=== PATIENT | female | born 1980 | race Caucasian/White ===

== ENCOUNTER 2023-05-22 20:25 | Emergency (ER) | payer OTHER ==
[~2023-05-22] VITALS: Ht 149.9 cm; Wt 69.4 kg
[2023-05-22 20:42] VITALS: BP 127/82; PULSE 82; RESP 18; TEMP 97.4; O2SAT 98
[2023-05-22] MEDS ORDERED: TORADOL IV STA (21:06)
[2023-05-22] MEDS ORDERED: TORADOL ONE (21:15)
[2023-05-22] MEDS ORDERED: NS 1000ML 1,000 ML ONE (21:15)
[2023-05-22 21:24] LABS: APPEARANCE,URINE CLEAR; BILIRUBIN,URINE NEGATIVE (NEGATIVE); LEUKOCYTE ESTERASE ,URINE NEGATIVE (NEGATIVE); NITRATE,URINE NEGATIVE (NEGATIVE); UA COLOR YELLOW; UROBILINOGEN,URINE 0.2 E.U./dL (0.2)
[2023-05-22] MEDS ORDERED: NS 1000ML 1,000 ML IV ONE (21:30)
[2023-05-22 21:31] LABS: BASOPHIL # 0.1 10^3/uL (0.0-0.1); BASOPHIL % 0.9 % (0.0-0.2); EOSINOPHIL # 0.3 10^3/uL (0.0-0.2); EOSINOPHIL % 2.5 % (0.0-5.0); HEMATOCRIT(ML) 45.9 % (36.0-46.0); LYMPHOCYTES # 4.36 10^3/uL1 (1.0-4.8); LYMPHOCYTES % 35.4 % (24.0-44.0); MEAN CORP HGB 27.7 pg (26-34); MEAN CORP HGB CONCENTRATION 32.7 g/dL (33-36.5); MEAN CORP VOLUME 84.7 fL (78-100); MONOCYTES % 7.9 % (5.0-12.0); NEUTROPHIL # 6.5 10^3/uL (1.8-7.7); NEUTROPHILS % 53.1 % (41.0-85.0); PLATELET COUNT 405 10^3/uL (150-400); RED BLOOD CELL 5.42 10^6/uL (4.00-5.20); RED CELL DISTRIBUTION WIDTH 13.2 % (11.5-14.5); WHITE BLOOD CELL 12.3 10^3/uL (4.5-11.0)
[2023-05-22 21:35] LABS: +ADD MANUAL DIFF(NO CHRG) NO
[2023-05-22 21:43] LABS: ALBUMIN/GLOBULIN RATIO 1.25; ANION GAP 17.1; BUN/CREATININE RATIO 13.18 (10.0-20.0); CALCIUM 9.1 mg/dL (8.4-10.5); CARBON DIOXIDE 24.3 mmol/L (20.0-32); CREATININE SERUM 0.91 mg/dL (0.59-1.40); EST GFR, NON-AA 67.5 (>/=60); POTASSIUM 4.4 mmol/L (3.6-5.2)
[2023-05-22] MEDS ORDERED: ZOFRAN IV STA (23:03)
[2023-05-22] MEDS ORDERED: MORPHINE SULFATE IV STA (23:03)
[2023-05-22] MEDS ORDERED: ZOFRAN ONE (23:24)
[2023-05-22] MEDS ORDERED: OFIRMEV 1000 MG/100 ML 100 ML IV ONE (23:25)
[2023-05-22] MEDS: OFIRMEV 1000 MG/100 ML IV SCH ×2 (23:34→23:35)
[2023-05-22 23:36] VITALS: BP 122/82; PULSE 75; RESP 18; TEMP 97.4; O2SAT 98
[2023-05-23 00:20] VITALS: BP 118/82; PULSE 75; RESP 18; TEMP 97.4; O2SAT 98
== END 2023-05-23 00:20 | disposition home or self-care (01) ==
LOC: ER 20:25
DX: R10.2 Pelvic and perineal pain (principal); Z90.89 Acquired absence of other organs
CPT/HCPCS: 99285; 74177; 96374; 76856; 96375; 96361; 81003; 80053; 85025; 36415; 82150; 81025; 83690; 76830; J7030; J0131; J2405; J1885; Q9965; 84703; 85610; 85730